=== PATIENT | female | born 1970 | race Caucasian/White ===

== ENCOUNTER 2020-08-09 02:09 | Outpatient (CLI) | payer BC, SELFPAY ==
[2020-08-09 18:25] LABS: SARS-CoV-2 RNA PCR Negative
== END 2020-08-09 02:10 | disposition home or self-care (01) ==
LOC: ANHCOVIDDT 02:09
PROVIDERS: PCP Internal Medicine; Visit Provider Internal Medicine Gastroenterology
DX: Z01.812 Encounter for preprocedural laboratory examination (principal); Z20.828 Contact with and (suspected) exposure to other viral communicable diseases
CPT/HCPCS: 87635; C9803; U0003

== ENCOUNTER 2020-08-12 01:46 | Day surgery (SDC) | payer BC, SELFPAY ==
[2020-08-06 09:40] VITALS: BMI 28.5
[2020-08-12 07:46] VITALS: BP 124/80; RESP 16; TEMP 36.6; O2SAT 100; BMI 27.6
[2020-08-12] MEDS: LACTATED RINGERS 1,000 ML 150 ML IV CONT (08:00)
--- NOTE | 2020-08-12 08:00 | WPDANESEPPF ---
Anes - Initial Pre Proc Eval Procedure: Operation Date: 08/12/20 08:30 Proposed Procedures p Screening Colonoscopy - Jai Martinez MD Date/Time: 08/12/20 08:00 Surgeon: Jai Martinez MD Pre Op Diagnosis: NEOPLASM SCREENING FAMILY HX OF COLON POLYPS AND C Patient Data Age: 50 Gender: F Height: 4 ft 11 in Weight: 61.9 kg Last Vital Signs Temp 97.8 F 08/12/20 07:46 Resp 16 08/12/20 07:46 BP 124/80 08/12/20 07:46 Pulse Ox 100 08/12/20 07:46 Allergies Allergy/AdvReac Type Severity Reaction Status Date / Time bupropion Allergy Severe Swelling Verified 08/12/20 07:45 of Lip/Tongue/Throat Home Medications Medication Instructions Recorded Confirmed Type apremilast [Otezla] 30 mg PO BID 08/06/20 08/06/20 History aspirin [Adult Low Dose Aspirin] 81 mg PO DAILY 08/06/20 08/06/20 History famotidine [Pepcid AC] 20 mg PO DAILY 08/06/20 08/06/20 History metformin 1,000 mg PO QACDINNER 08/06/20 08/06/20 History Patient hx anesthesia problems: none Family hx anesthesia problems: none PMFSH Past Medical History Medical History (Updated 08/12/20 @ 08:00 by Yovany Marcus MD) Arthritis Diabetes GERD (gastroesophageal reflux disease) Surgical History Surgical History (Updated 08/12/20 @ 08:00 by Yovany Marcus MD) S/P excision of acoustic neuroma Social History Social History Smoking packs per day: 0.5 Smoking cigarettes per day: 10.0 Years smoked: 30 Smoking pack-years: 15.00 Smoking status: Former smoker Tobacco type: cigarettes Alcohol intake: never Substance use: never Substance use type: does not use Living arrangements: with family Spiritual care concerns: No Anes - Eval Final PreProcedure Day of Procedure 08/12/20 08:00 Patient weight: normal Heart: regular rate and rhythm Lungs: clear to auscultation Airway: Mallampati scale class II Neurological: alert and oriented Last oral intake: >/= 8 hours ASA classification: III Emergent: no Anesthetic plan: proceed Anesthesia type and monitoring: general GIVS and standard monitoring Informed Consent: The patient's anesthetic plan and its attendant risks and benefits were discussed with the patient/family/POA. Questions were solicited and answers provided to the satisfaction of the patient/family/POA.
[2020-08-12 08:06] LABS: Glucose Point of Care 115 (65-105)
--- NOTE | 2020-08-12 08:36 | WPDGICN ---
Assessment and Plan Assessment and plan (1) Family history of colonic polyps: Code(s): Z83.71 - Family history of colonic polyps Status: Acute Assessment and Plan: Patient has a family history of colon polyps in both her mother and a brother. A nephew is had colon cancer. Patient herself has a distant history of colon polyps 10 years ago. For all these reasons screening colonoscopy is advised now on at 5 year intervals in the future. GI Consult Note Consult date/time: 08/12/20 08:36 HPI: Dyan Vizcarra is a 50 year old female Seen in evaluation at the request of Dr. Victoria. patient has a strong family history of colon polyps. Patient's brother and mother both had colon polyps nephew had colon cancer while in his 20s. Patient states that her own weight appetite bowel movements are normal. She denies abdominal pain. She has had no bleeding. Review of Systems Review of Systems: All systems reviewed & are unremarkable except as noted in HPI and below PMFSH Past Medical History Medical History Arthritis Diabetes GERD (gastroesophageal reflux disease) Surgical History Surgical History (Updated 08/12/20 @ 08:00 by Yovany Marcus MD) S/P excision of acoustic neuroma Social History Social History Smoking packs per day: 0.5 Smoking cigarettes per day: 10.0 Years smoked: 30 Smoking pack-years: 15.00 Smoking status: Former smoker Tobacco type: cigarettes Alcohol intake: never Substance use: never Substance use type: does not use Living arrangements: with family Spiritual care concerns: No Meds Home Medications and Allergies Home Medications Medication Instructions Recorded Confirmed Type apremilast [Otezla] 30 mg PO BID 08/06/20 08/12/20 History aspirin [Adult Low Dose Aspirin] 81 mg PO DAILY 08/06/20 08/12/20 History famotidine [Pepcid AC] 20 mg PO DAILY 08/06/20 08/12/20 History metformin 1,000 mg PO QACDINNER 08/06/20 08/12/20 History Allergies Allergy/AdvReac Type Severity Reaction Status Date / Time bupropion Allergy Severe Swelling Verified 08/12/20 07:45 of Lip/Tongue/Throat Vital Signs Vital Signs - 24 hr 08/12/20 07:46 Temperature 97.8 F Respiratory Rate 16 Blood Pressure 124/80 Pulse Oximetry 100 Exam Narrative: Exam Narrative: Physical exam reveals patient to be alert. Vital signs stable. HEENT exam unremarkable. Lungs are clear to auscultation and percussion. Heart is without murmur or extra sounds. Abdominal exam bowel sounds are present soft nontender with no organomegaly. Digital external rectal exam is normal.
[2020-08-12 09:09] VITALS: BP 97/61; PULSE 79; RESP 18; O2SAT 100
[2020-08-12 09:19] VITALS: BP 115/73; PULSE 74; RESP 18; O2SAT 100
[2020-08-12 09:29] VITALS: BP 129/80; PULSE 68; RESP 20; O2SAT 100
== END 2020-08-12 09:45 | disposition home or self-care (01) ==
PROVIDERS: PCP Internal Medicine; Visit Provider Internal Medicine Gastroenterology
PROC: 0DJD8ZZ Inspection of Lower Intestinal Tract, Via Natural or Artificial Opening Endoscopic (ICD-10-PCS; CPT 45378; principal; 2020-08-12 08:30)
DX: Z12.11 Encounter for screening for malignant neoplasm of colon (principal); K63.5 Polyp of colon; K64.8 Other hemorrhoids; Z83.71 Family history of colonic polyps; E11.9 Type 2 diabetes mellitus without complications; K21.9 Gastro-esophageal reflux disease without esophagitis; Z87.891 Personal history of nicotine dependence; Z79.84 Long term (current) use of oral hypoglycemic drugs; Z79.82 Long term (current) use of aspirin
CPT/HCPCS: 45385; 88305; J2704; J7120

== ENCOUNTER 2020-10-01 07:40 | Outpatient (CLI) | payer BC, SELFPAY ==
--- NOTE | ~2020-10-01 | MM_ITS ---
EXAMINATION: MM screening alfrdeo BI w tommy HISTORY: Screening TECHNIQUE: Craniocaudal and mediolateral oblique 3-D tomosynthesis images were obtained and synthetic 2-D images were generated. CAD analysis was submitted and interpreted. COMPARISON: Comparison to multiple prior studies sequentially, with oldest reviewed study dated 12/2013. BREAST PARENCHYMAL COMPOSITION: The breasts are heterogeneously dense, which may obscure small masses . FINDINGS: There is no evidence of suspicious mass, calcification, or architectural distortion to sugg est malignancy in either breast. There has been no suspicious interval change. IMPRESSION: 1. No mammographic evidence of malignancy. 2. Recommend routine screening mammography in one year. BI-RADS Category 1: Negative Reviewed, dictated and finalized at location A. ADVISOR
== END 2020-10-01 07:41 | disposition home or self-care (01) ==
LOC: CHSIMG 07:43
PROVIDERS: PCP Internal Medicine; Visit Provider Internal Medicine
DX: Z12.31 Encounter for screening mammogram for malignant neoplasm of breast (principal)
CPT/HCPCS: 77063; 77067

== ENCOUNTER 2022-01-08 11:52 | Outpatient (CLI) | payer BC, SELFPAY ==
--- NOTE | ~2022-01-08 | MM_ITS ---
EXAMINATION: MM screening alfredo BI w tommy HISTORY: Screening mammogram, family history of breast cancer in her mother. TECHNIQUE: Craniocaudal and mediolateral oblique 3-D tomosynthesis images were obtained and synthetic 2-D images were generated. CAD analysis was submitted and interpreted. COMPARISON: 10/01/2020, 10/28/2015, 10/09/2015 BREAST PARENCHYMAL COMPOSITION: The breasts are heterogeneously dense, which may obscure small masses . FINDINGS: There is no suspicious mass, calcification, or architectural distortion to suggest malignan cy in either breast. There has been no suspicious interval change. IMPRESSION: 1. No mammographic evidence of malignancy. 2. Recommend routine screening mammography in one year. BI-RADS Category 1: Negative Reviewed, dictated and finalized at location A.
== END 2022-01-08 11:53 | disposition home or self-care (01) ==
LOC: CHSIMG 11:54
PROVIDERS: PCP Internal Medicine; Visit Provider Obstetrics & Gynecology
DX: Z12.31 Encounter for screening mammogram for malignant neoplasm of breast (principal)
CPT/HCPCS: 77063; 77067

== ENCOUNTER 2022-07-08 19:19 | Outpatient (CLI) | payer BC, SELFPAY ==
--- NOTE | ~2022-07-08 | XR_ITS ---
EXAM: XR hip RT min 2V DATE: 07/08/2022 19:36 HISTORY: PAIN/NO TRAUMA . COMPARISON: None available. FINDINGS: Normal mineralization. No fracture or dislocation. No lytic or blastic lesion. Mild superi or right hip joint space narrowing and subchondral sclerosis. No erosion or periosteal change. Soft t issues within normal limits. IMPRESSION: Mild right hip osteoarthritis. Reviewed, dictated and finalized at location K.
== END 2022-07-08 19:20 | disposition home or self-care (01) ==
LOC: CHSIMG 19:22
PROVIDERS: PCP Internal Medicine; Visit Provider Internal Medicine
DX: M25.551 Pain in right hip (principal)
CPT/HCPCS: 73502

== ENCOUNTER 2022-07-21 07:36 | Outpatient (CLI) | payer BC, SELFPAY ==
--- NOTE | ~2022-07-21 | MR_ITS ---
EXAMINATION: MR hip RT wo con DATE: 07/21/2022 08:53 INDICATION: Chronic right hip pain TECHNIQUE: Magnetic resonance imaging (MRI) of the right hip was performed without intravenous contr ast. Sequences included full-field axial PD-weighted FS FSE and T1-weighted FSE, coronal of the pelvi s with PD-weighted FS FSE, T2-weighted FSE and T1-weighted FSE, small field of view of the right hip with axial PD-weighted FS FSE, sagittal PD-weighted FS FSE, coronal PD-weighted FS FSE and coronal T2 weighted FSE. Additional radial T1-weighted FGR oriented orthogonal to the acetabular rim were obt ained for evaluation of the labrum. COMPARISON: Right hip radiographs dated 07/08/2022 FINDINGS: Bones/labrum/cartilage: Alignment is normal. No fracture, avascular necrosis or pathologic marrow replacing process. Labrum is normal. Mild right hip osteoarthritis with mild partial-thickness cartilage loss along the posteri or to posterior superior aspect of the joint space. Fluid: Symmetric physiologic amount of fluid within both hip joints. Mild increased fluid signal overlying t he bilateral greater trochanters consistent with mild trochanteric bursitis. Soft tissues: Normal and symmetric muscle bulk and signal in the pelvis and visualized proximal thighs. The iliopso as, gluteal and proximal hamstring tendons are normal. Fibroid uterus with several small low signal i ntensity calcified degenerated fibroids, the largest measuring up to 2.2 cm. Limited evaluation of vi sceral organs of the pelvis is otherwise unremarkable. No pathologically enlarged pelvic/inguinal ly mphadenopathy. IMPRESSION: 1. Mild right hip osteoarthritis. 2. Relatively symmetric mild bilateral trochanteric bursitis. 3. Fibroid uterus. Reviewed, dictated and finalized at location A.
== END 2022-07-21 07:37 | disposition home or self-care (01) ==
LOC: CHSIMG 07:37
PROVIDERS: PCP Internal Medicine; Visit Provider Internal Medicine
DX: M25.551 Pain in right hip (principal)
CPT/HCPCS: 73721

== ENCOUNTER 2023-01-11 07:37 | Outpatient (CLI) | payer BC, SELFPAY ==
--- NOTE | ~2023-01-11 | MM_ITS ---
EXAMINATION: MM screening alfredo BI w tommy HISTORY: Screening TECHNIQUE: Craniocaudal and mediolateral oblique 3-D tomosynthesis images were obtained and synthetic 2-D images were generated. CAD analysis was submitted and interpreted. COMPARISON: Comparison to multiple prior studies sequentially, with oldest reviewed study dated 12/2013. BREAST PARENCHYMAL COMPOSITION: The breasts are heterogeneously dense, which may obscure small masses . FINDINGS: There is no evidence of suspicious mass, calcification, or architectural distortion to sugg est malignancy in either breast. There has been no suspicious interval change. IMPRESSION: 1. No mammographic evidence of malignancy. 2. Recommend routine screening mammography in one year. BI-RADS Category 1: Negative Reviewed, dictated and finalized at location A.
== END 2023-01-11 07:38 | disposition home or self-care (01) ==
LOC: CHSIMG 07:40
PROVIDERS: PCP Internal Medicine; Visit Provider Obstetrics & Gynecology
DX: Z12.31 Encounter for screening mammogram for malignant neoplasm of breast (principal)
CPT/HCPCS: 77063; 77067

== ENCOUNTER 2024-01-27 07:38 | Outpatient (CLI) | payer BC, SELFPAY ==
--- NOTE | ~2024-01-27 | DEXA_ITS ---
? Bone Density Report? Name:? jerardo reeder Patient ID:??? [id number] Age:? 53 Sex:? Female Ethnicity:? White Date of : 1970 Indication: postmenopausal; screening for osteoporosis; Referring Provider: Spike Victoria Study: Bone densitometry was performed. Exam Date: January 27, 2024 Accession number: [id number] Bone Density: Region? BMD??? T-score? Z-score?? Classification AP Spine(L1-L4)? 0.809?? -2.2? -1.1? Osteopenia Femoral Neck (Left)? 0.683?? -1.5? -0.4? Osteopenia Total Hip (Left)? 0.803?? -1.1? -0.4? Osteopenia Femoral Neck (Right)? 0.671?? -1.6? -0.5? Osteopenia Total Hip (Right)? 0.770?? -1.4? -0.7? Osteopenia Femoral Neck Mean? 0.677?? -1.6? -0.5? Osteopenia Total Hip Mean? 0.787?? -1.3? -0.6? Osteopenia World Health Organization criteria for BMD impression classify patients as: Normal (T-score at or above -1.0), Osteopenia (T-score between -1.0 and -2.5), or Osteoporosis (T-score at or below -2.5). 10-year Fracture Risk(1): Major Osteoporotic Fracture? 7.1% Hip Fracture? 0.6% Reported Risk Factors: [place] (), Neck BMD=0.671, BMI=26.3 (1) FRAX? Version 3.08. Fracture probability calculated for an untreated patient. Fracture probability may be lower if the patient has received treatment. Clinical Information Provided by Patient: Patient maximum height was 59 Menopause Age: 38 No regular weight bearing exercise Does not regularly consume dairy products Drinks caffeinated beverages Onset of menses at age 10 Number of children 0 Impression: The patient has low bone mass, based on the Total Spine T-score. Discussion: BONE DENSITY IS LOW AT ONE OR MORE SKELETAL SITES. This patient's lowest T-score is low at one or more skeletal sites.? It meets the World Health Organization's (WHO) criteria for ?low bone mass?? (T-score between -1.0 and -2.5).? The patient's 10-year risk of fracture as calculated by FRAX is less than the threshold where pharmacological therapy is recommended by the National Osteoporosis Foundation (NOF).? However, all treatment decisions require clinical judgment and consideration of individual patient factors, including patient preferences, comorbidities, previous drug use, risk factors not captured in the FRAX model (e.g., frailty, falls, vitamin D deficiency, increased bone turnover, interval significant decline in bone density) and possible under or overestimation of fracture risk by FRAX. The patient should follow a healthful lifestyle (good nutrition with adequate calcium and vitamin D, and appropriate weight-bearing exercise). Follow-Up: Consider repeating this study in 2 to 3 years to reassess this patient's status, or sooner if there is some new clinical indication. Reported by: Dr. Paul Oliva on :57:00 AM. MICAH
--- NOTE | ~2024-01-27 | MM_ITS ---
EXAMINATION: MM screening alfredo BI w tommy HISTORY: Screening TECHNIQUE: Craniocaudal and mediolateral oblique 3-D tomosynthesis images were obtained and synthetic 2-D images were generated. CAD analysis was submitted and interpreted. COMPARISON: Comparison to multiple prior studies sequentially, with oldest reviewed study dated 05/2020. BREAST PARENCHYMAL COMPOSITION: Not dense: There are scattered areas of fibroglandular density. FINDINGS: There are new subtle asymmetries laterally in the right breast on CC view. The left breast is stable without evidence for malignancy. IMPRESSION: 1. New subtle right breast asymmetries. 2. Additional mammographic views and possible breast ultrasound are recommended. BI-RADS Category 0: Incomplete: Needs additional imaging evaluation. Reviewed, dictated and finalized at location A. IMPRESSION: 1. New subtle right breast asymmetries. 2. Additional mammographic views and possible breast ultrasound are recommended . BI-RADS Category 0: Incomplete: Needs additional imaging evaluation.
== END 2024-01-27 07:39 | disposition home or self-care (01) ==
LOC: CHSIMG 07:40
PROVIDERS: PCP Internal Medicine; Visit Provider Internal Medicine
DX: Z12.31 Encounter for screening mammogram for malignant neoplasm of breast (principal); Z78.0 Asymptomatic menopausal state; R92.8 Other abnormal and inconclusive findings on diagnostic imaging of breast; M85.89 Other specified disorders of bone density and structure, multiple sites
CPT/HCPCS: 77063; 77067; 77080

== ENCOUNTER 2024-02-03 10:19 | Outpatient (CLI) | payer BC, SELFPAY ==
--- NOTE | ~2024-02-03 | MMUS_ITS ---
EXAMINATION: MM diagnostic alfredo RT w tommy, US breast RT limited HISTORY: New subtle asymmetries were reported laterally in the right breast on screening craniocaudal view of January 27, 2024. TECHNIQUE: Additional 3-D tomosynthesis images of the right breast were performed and synthetic 2-D i mages were generated. CAD analysis was submitted and interpreted. High resolution 8-12:00 right breas t ultrasound was performed. COMPARISON: January 27, 2024, January 11, 2023, January 08, 2022 bilateral screening mammogram examinations FINDINGS: MAMMOGRAPHIC FINDINGS: No suspicious mass, architectural distortion, malignant calcification, skin thickening or retraction is detected. No significant change is noted compared to 01/11/2023 or 01/08/2022. ULTRASOUND: . No suspicious mass or shadowing, cyst or other significant sonographic abnormality is detected. IMPRESSION: 1. No evidence of malignancy 2. Routine annual mammographic screening is recommended BI-RADS Category 1: Negative Reviewed, dictated and finalized at location A. IMPRESSION: 1. No evidence of malignancy 2. Routine annual mammographic screening is recommended BI-RADS Category 1: Negative
== END 2024-02-03 10:20 | disposition home or self-care (01) ==
LOC: CHSIMG 10:20
PROVIDERS: PCP Internal Medicine; Visit Provider Internal Medicine
DX: R92.8 Other abnormal and inconclusive findings on diagnostic imaging of breast (principal)
CPT/HCPCS: 76642; 77061; 77065; G0279

== ENCOUNTER 2024-02-15 07:47 | Outpatient (CLI) | payer BC, SELFPAY ==
--- NOTE | ~2024-02-15 | CT_ITS ---
EXAMINATION: CT lung screening DATE: 02/15/2024 08:04 INDICATION: PERSONAL HX OF NICOTINE DEPENDENCE/NO CHEST COMPLAINTS TECHNIQUE: Computed tomography (CT) of the chest was performed without intravenous contrast. Addition al 3D reconstructions utilizing coronal maximum intensity projection (MIP) were performed. Automated exposure control and iterative reconstruction technique were employed. The dose-length product was 57 .64 mGy-cm. COMPARISON: None FINDINGS: 2 mm calcified nodule in the right middle lobe consistent with old granulomatous disease. Additional 2 mm noncalcified nodules in the right middle lobe, lingula and along the right minor fissure. No oth er larger suspicious pulmonary nodules, pneumonia, pulmonary edema or pleural effusion. Heart size is normal. No pericardial effusion. Thoracic aorta is normal in caliber. No pathologically enlarged tho racic lymphadenopathy. Mild to moderate thoracic spondylosis. IMPRESSION: 1. . Lung-RADS category 2: Benign appearance or behavior. Continue annual screening with noncontrast low-dose chest CT in 12 months. Reviewed, dictated and finalized at location A. IMPRESSION: 1. . Lung-RADS category 2: Benign appearance or behavior. Continue annual scree cory with noncontrast low-dose chest CT in 12 months.
== END 2024-02-15 07:48 | disposition home or self-care (01) ==
LOC: CHSIMG 07:49
PROVIDERS: PCP Internal Medicine; Visit Provider Internal Medicine
DX: Z12.2 Encounter for screening for malignant neoplasm of respiratory organs (principal); Z87.891 Personal history of nicotine dependence
CPT/HCPCS: 71271

== ENCOUNTER 2025-05-23 09:51 | Outpatient (CLI) | payer BC, SELFPAY ==
--- NOTE | ~2025-05-23 | MM_ITS ---
EXAMINATION: MM screening alfredo BI w tommy HISTORY: Screening TECHNIQUE: Craniocaudal and mediolateral oblique 3-D tomosynthesis images were obtained and synthetic 2-D images were generated. CAD analysis was submitted and interpreted. COMPARISON: Comparison to multiple prior studies sequentially, with oldest reviewed study dated 01/2016. BREAST PARENCHYMAL COMPOSITION: Dense: The breasts are heterogeneously dense, which may obscure small masses FINDINGS: There is no evidence of suspicious mass, calcification, or architectural distortion to sugg est malignancy in either breast. There has been no suspicious interval change. IMPRESSION: 1. No mammographic evidence of malignancy. 2. Recommend routine screening mammography in one year. BI-RADS Category 1: Negative Reviewed, dictated and finalized at location B.
--- NOTE | ~2025-05-23 | CT_ITS ---
CT Scan of the Chest without Contrast: Clinical Indication: Lung cancer screening, nicotine dependence Technique: Contiguous sections were acquired throughout the chest without intravenous contrast. Dose reduction technique was used on this scan by utilizing automated exposure control and iterative recon struction technique. The dose-length product (DLP) was 64.62 mGy-cm. COMPARISON: 02/15/2024 Findings: There is no evidence of any significant mediastinal, hilar or axillary lymphadenopathy. The mediastin al soft tissues appear normal. There is no evidence of pleural or pericardial effusion. Stable 2 mm left lower lobe pulmonary nodule. Images through the upper abdomen reveal no abnormalities. Impression: Lung RADS 2: Benign appearance. 12 month follow-up screening CT advised. Reviewed, dictated and finalized at location . Impression: Lung RADS 2: Benign appearance. 12 month follow-up screening CT advised.
--- OUTSIDE RECORDS SUMMARY | 2025-05-23 10:20 | XMS_ITS | Continuity of Care Document ---
Author Organization [facility] Address [address] [facility] [address] [place] [address] Phone Care Team Providers Care Grave Digger Name Role Phone Abbey Rivas Unavailable Unavailable Advance Directives Directive Yes / No Effective Date File Name No Information Encounters Encounter Description Practice Location Reason(s) For Visit Diagnoses Date Provider Providers Copied on Encounter [facility], [address], [place], [place], [id number], [place] tel:[phone] [facility] No Information Mar-0 8-200 5 Evelyn Potter. [address] , [address], [place], [address], [place]. tel:[phone] Family History Family Member Type Diagnosis Age At Onset No Information Payers Payer name Insurance type Covered libertarian ID Authoriza tion(s) [facility] Commercial CI [id number] Social History Type Description Quantity Date Captured Comments Sex Female Smoking Status No Information Chief Complaint And Reason For Visit No Information Reason For Referral Reason For Referral No Information History Of Present Illness Encounter Date Complaint History Of Prese nt Illness No Information Functional Status Date Functional Assessmen t No Information Instructions Date Instruction Additional Infor mation No Information Assessments Type Assessment Date No Information Patient Care Teams Name Effective Dates (start - stop) Status Members No Information
--- OUTSIDE RECORDS SUMMARY | 2025-05-23 10:20 | XMS_ITS | Referral Summary ---
Author Organization [facility] Address [address] [place] [address] Care Team Providers Care Nuclear Plant Construction Worker Name Role Phone Spike Victoria MD Primary Care Provider Referral, Self Unavailable Unavailable Allergies Active Allergy Reactions Criticality Noted Date Comments Bupropion Swelling Medium 08/09/2020 Medications metFORMIN XR (GLUCOPHAGE XR) 500 mg 24 hr tablet TAKE 2 TABLETS BY MOUTH EVERY DAY WITH EVENING MEAL 07/24/2020 Active Accu-Chek Fastclix Lancet Drum misc USE 3 TIMES A DAY 07/25/[address] (VOLTAREN) 75 mg EC tablet Take 75 mg by mouth 2 (two) times a day 07/10/2020 Active Accu-Chek Guide Me Glucose Mtr misc as directed 07/25/2020 Active Accu-Chek Guide test strips strip USE 3 TIMES A DAY DIRECTED 07/25/2020 Active Otezla 30 mg tablet 30 mg daily 07/14/2020 Active aspirin 81 mg enteric coated tablet Take 81 mg by mouth daily Active famotidine (PEPCID) 20 mg tablet Take 20 mg by mouth daily Active Active Problems Problem Noted Date Diagnosed Date Acoustic neuroma 07/12/2018 Sensorineural hearing loss ( SNHL) of right ear with unrestricted hearing of left ear 07/12/2018 Adult BMI 26.0-26.9 kg/sq m 09/26/2015 Atypical chest pain 09/26/2015 Current smoker 09/26/2014 Sialoadenitis 08/01/2010 Social History Tobacco Use Types Packs/Day Years Used Date Smoking Tobacco: Former Cigarettes Q uit: 02/21/2019 Comments Unknown Sex and Gender Information Value Date Recorded Sex Assigned at Not on file Legal Sex Female 12:49 PM CUTTER TENDER Gender Identity Not on file Sexual Orientation Not on file Last Filed Vital Signs Vital Sign Reading Time Taken Comments Blood Pressure 128/76 08/09/2020 11:29 AM CDT Pulse 79 08/09/2020 11:29 AM CDT Temperature 36.3 C (97.3 F) 08/09/2020 11:29 AM CDT Respiratory Rate - - Oxygen Saturation 98% 08/09/2020 11:29 AM CDT Inhaled Oxygen Concentration - - Weight 63.2 kg (139 lb 6.4 oz) 08/09/2020 11:29 AM CDT Height 149.9 cm (4' 11) 08/09/2020 11:29 AM CDT Body Mass Index 28.16 08/09/2020 11:29 AM CDT Plan of Treatment Not on file Procedures Procedure Name Priority Date/Time Associated Diagnosis Comments MAMMOGRAPHY, TOMOGRAPHY, BILATERAL Routine 09/23/2017 3:51 PM CUTTER TENDER from Last 3 Months or Most Recently Relevant to Health Maintenance Results * MAMMOGRAPHY, TOMOGRAPHY, BILATERAL (09/23/2017 3:51 PM CUTTER TENDER) Anatomical Region Laterality Modality Bilateral Mammography 09/23/2017 3:51 PM CUTTER TENDER Narrative 09/23/2017 3:52 PM CUTTER TENDER SCREENING MAMM W TRICIA BI Acc#: [id number] DATE OF EXAM: Sep 23 2017 SCREENING MAMM W TRICIA BI HISTORY: SCREENING MAMMOGRAM. TECHNIQUE: 3 views of each breast were obtained with bilateral breast tomosynthesis. COMPARISON: 11/02/2009. FINDINGS: The breasts are heterogeneously dense. No suspicious mass or calcification is seen to suggest mammographic evidence of malignancy. Digital technology was employed plus computer aided detection software (R2) was utilized in interpretation of these images. This facility utilizes a reminder system to notify patient's of yearly mammograms. IMPRESSION: 1. NO DEFINITIVE MAMMOGRAPHIC EVIDENCE OF MALIGNANCY. 2. ANNUAL FOLLOW-UP RECOMMENDED. BI-RADS 1 Electronically signed by: Isaac Campbell M.D Interpreting Physician: ISAAC CAMPBELL M.D. Read on: Sep 23 2017 9:52A Transcribed by: [facility] On: Sep 23 2017 9:50A Approved Electronically by: ISAAC CAMPBELL M.D. on: Sep 23 2017 9:50A Ordering DR: REFERRAL SELF Attending DR: DR ODESSA GERARD Attending: DR ODESSA GERARD Requesting: SELF, REFERRAL Requesting Fax: -- Attending Attending ID: [id number] Requesting ID: [id number] Report To 1 ID: [id number] Report To 1 Name: DR ODESSA GERARD Report To 1 FAX: [phone] Next[employer] Order #: Procedure Note Miscellaneous, Not In File - 09/23/2017 SCREENING MAMM W TRICIA BI Acc#: [id number] DATE OF EXAM: Sep 23 2017 SCREENING MAMM W TRICIA BI HISTORY: SCREENING MAMMOGRAM. TECHNIQUE: 3 views of each breast were obtained with bilateral breast tomosynthesis. COMPARISON: 11/02/2009. FINDINGS: The breasts are heterogeneously dense. No suspicious mass or calcification is seen to suggest mammographic evidence of malignancy. Digital technology was employed plus computer aided detection software (R2) was utilized in interpretation of these images. This facility utilizes a reminder system to notify patient's of yearly mammograms. IMPRESSION: 1. NO DEFINITIVE MAMMOGRAPHIC EVIDENCE OF MALIGNANCY. 2. ANNUAL FOLLOW-UP RECOMMENDED. BI-RADS 1 Electronically signed by: Isaac Campbell M.D Interpreting Physician: ISAAC CAMPBELL M.D. Read on: Sep 23 2017 9:52A Transcribed by: [facility] On: Sep 23 2017 9:50A Approved Electronically by: ISAAC CAMPBELL M.D. on: Sep 23 2017 9:50A Ordering DR: USMAN SELF Attending DR: DR ODESSA GERARD Attending: DR ODESSA GERARD Requesting: SELF, REFERRAL Requesting Fax: -- Attending Attending ID: [id number] Requesting ID: [id number] Report To 1 ID: [id number] Report To 1 Name: DR ODESSA GERARD Report To 1 FAX: [phone] [employer] Order #: us Self Referral IMG MAMMO PROCEDURES Edited Resu lt - Final from Last 3 Months or Most Recently Relevant to Health Maintenance [place] [employer] [place] [employer] [place] Care Teams Nuclear Plant Construction Worker Relationship Specialty Start Date End Date Spike Victoria MD [address] [place] [address] PCP - General 08/25/17 Referral, Self Referring Physician Otolaryngology 08/02/20
--- OUTSIDE RECORDS SUMMARY | 2025-05-23 10:20 | XMS_ITS | Clinical Summary ---
Author Organization Formerly [facility] Address [address] [place] [address] Care Team Providers Care Color Control Supervisor Name Role Phone Spike Victoria MD Primary Care Provider [phone] Referral, Self Unavailable Unavailable Allergies Active Allergy [...] pain 09/26/2015 Current smoker 09/26/2014 Sialoadenitis 08/01/2010 Surgical History Surgery Date Site/Laterality Comments SKIN CANCER EXCISION Medical History Medical History Date Comments Autoimmune disease Cancer (HCC) Dizziness Headache Family History Medical History Relation Name Comments Coronary artery disease Brother Diabetes Brother Family history of diabetes mellitus (DM) - (Added by TW Conv) Cancer Father Family history of cancer - (Added by TW Conv) Diabetes Father Family history of diabetes mellitus (DM) - (Added by Conv) Cancer Maternal Grandfather Family history of cancer - Relation: Grandfather (Added by TW Conv) Diabetes Mother Family history of diabetes mellitus (DM) - (Added by TW Conv) Diabetes Sister Family history of diabetes mellitus (DM) - (Added by TW Conv) Relation Name Status Comments Brother Father Maternal Grandfather Mother Sister Social History Tobacco Use Types Packs/Day Years Used Date Smoking Tobacco: Former Cigarettes Q uit: 02/21/2019 Comments Unknown Sex and Gender Information Value Date Recorded Sex Assigned at Not on file 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 Gender Identity Not on file Sexual Orientation Not on file Obstetrics History Last Filed Vital Signs Vital Sign Reading [...] 08/09/2020 11:29 AM CDT Plan of Treatment Health Maintenance Due Date Last Done Comments Cervical Cancer Screening 1968 Colon Cancer Screening-Colonoscopy 1968 Depression Screening 1968 Hepatitis C Screening 1968 Hepatitis B Screening 1986 Regular Well Visit/Exam 18-64 1986 Breast Cancer Screening-Mammogram 09/23/2018 09/23/2017 Covid-19 Vaccine ( season) 2024 09/23/2022, 11/12/2021, 01/31/2021, Additional history exists DTaP/Tdap/Td Vaccine (2 - Td or Tdap) 08/17/2024 08/17/2014 Influenza Vaccine (#1) 2025 2, 06/19/2021, 07/10/2020 Pneumococcal vaccine <65 Aged Out 08/23/2020 No longer eligible based on patient's age to complete this topic Zoster Vaccine Completed 12/11/2020, 07/10/2020 Procedures Procedure Name Priority Date/Time Associated Diagnosis Comments MAMMOGRAPHY, TOMOGRAPHY, BILATERAL Routine 09/23/2017 3:51 PM SLOT HOST from Last 3 Months or Most Recently Relevant to Health Maintenance Results * MAMMOGRAPHY, TOMOGRAPHY, BILATERAL (09/23/2017 3:51 PM SLOT HOST) Anatomical Region Laterality Modality Bilateral Mammography 09/23/2017 3:51 PM SLOT HOST Narrative 09/23/2017 3:52 PM SLOT HOST SCREENING MAMM W TRICIA BI Acc#: [id number] DATE OF EXAM: Sep 23 2017 SCREENING [...] on: Sep 23 2017 9:52A Transcribed by: MALCOM On: Sep 23 2017 9:50A Approved Electronically by: ISAAC CAMPBELL M.D. on: Sep 23 2017 9:50A Ordering DR: REFERRAL SELF Attending DR: DR ODESSA GERARD Attending: DR ODESSA GERARD Requesting: SELF, REFERRAL Requesting Fax: -- Attending Attending ID: [id number] Requesting ID: [id number] Report To 1 ID: [id number] Report To 1 Name: DR ODESSA GERARD Report To 1 FAX: [phone] NextGen Order #: Procedure Note Miscellaneous, Not In File - 09/23/2017 SCREENING MAMM W TRICIA BI Acc#: [id number] DATE OF EXAM: Sep 23 2017 SCREENING [...] on: Sep 23 2017 9:52A Transcribed by: PSC On: Sep 23 2017 9:50A Approved Electronically by: ISAAC CAMPBELL M.D. on: Sep 23 2017 9:50A Ordering DR: REFERRAL SELF Attending DR: DR ODESSA GERARD Attending: DR ODESSA GERARD Requesting: SELF, REFERRAL Requesting Fax: -- Attending Attending ID: [id number] Requesting ID: [id number] Report To 1 ID: [id number] Report To 1 Name: DR ODESSA GERARD Report To 1 FAX: [phone] NextGen Order #: us Self Referral IMG MAMMO PROCEDURES Edited Resu lt - Final from Last 3 Months or Most Recently Relevant to Health Maintenance Insurance [facility] Statusly ACCESS OOS ATEME OOS Care Teams Color Control Supervisor Relationship Specialty Start Date End Date Spike Victoria MD [address] [place] [address] PCP - General 08/25/17 Referral, Self Referring Physician Otolaryngology 08/02/20
--- OUTSIDE RECORDS SUMMARY | 2025-05-23 10:20 | XMS_ITS | Clinical Summary ---
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 Gender Identity Not on file Sexual Orientation Not on file Plan of Treatment Health Maintenance Due Date Last Done Comments Cervical Cancer Screening Pa p Smear (Age 30 to 64) Every 3 Years 1968 Colorectal Cancer Screening Colonoscopy (10 Years) 1968 Annual Physical 1971 Hepatitis C 1986 DTaP, Tdap and Td Vaccines ( 1 - Tdap) 1987 Hepatitis B Vaccines (1 of 3 - 19+ 3-dose series) 1987 Cervical Cancer Screening Pa p with HPV Testing (Age 30 to 64) Every 5 Years 1998 Cervical Cancer Screening with HPV 1998 Mammogram Screening 2008 Pneumococcal Vaccine: 50+ Ye ars (1 of 1 - PCV) 2018 Zoster Vaccines (1 of 2) 2018 COVID-19 Vaccine (2023-2 5 season) 2024 Meningococcal B Vaccine Aged Out No l onger eligible based on patient's age to complete this topic Meningococcal Vaccine Aged Out No vianney elia eligible based on patient's age to complete this topic RSV Immunizations Under 20 Months Aged Out No longer eligible based on patient's age to complete this topic Insurance [facility] Care Teams Tank Truck Engine Mechanic Relationship Specialty Start Date End Date Spike Victoria MD [address] [place] [address] PCP - General INTERNAL MEDICINE 04/30/20
--- OUTSIDE RECORDS SUMMARY | 2025-05-23 10:20 | XMS_ITS | Encounter Summary ---
Author Organization 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 Gender Identity Not on file Sexual Orientation Not on file documented as of this encounter Plan of Treatment Not on file documented as of this encounter Procedures Procedure Name Priority Date/Time Associated Diagnosis Comments CARDIOLOGY DOCUMENT SCAN 07/24/2020 documented in this encounter Results * SCAN - CARDIOLOGY (07/24/2020) Anatomical Region Laterality Modality Other us Provider Scanning [facility] C[facility] SERVICES PROCEDURES Final Result documented in this encounter Visit Diagnoses Not on filedocumented in this encounter Care Teams Podiatric Physician Relationship Specialty Start Date End Date Spike Victoria MD [address] [place] [address] PCP - General 08/25/17 Referral, Self Referring Physician Otolaryngology 08/02/20 documented as of this encounter
== END 2025-05-23 09:52 | disposition home or self-care (01) ==
LOC: CHSIMG 09:55
PROVIDERS: PCP Internal Medicine; Visit Provider Obstetrics & Gynecology
DX: Z12.2 Encounter for screening for malignant neoplasm of respiratory organs (principal); Z87.891 Personal history of nicotine dependence; Z12.31 Encounter for screening mammogram for malignant neoplasm of breast
CPT/HCPCS: 71271; 77063; 77067